=== PATIENT | female | born 1985 | race Two or more races ===

== ENCOUNTER 2023-08-09 04:22 | Emergency (ER) | payer OTHER ==
[~2023-08-09] VITALS: Ht 160 cm; Wt 70.0 kg
[2023-08-09 04:38] VITALS: TEMP 98.4
[2023-08-09] MEDS: KETOROLAC TROMETHAMINE 30 MG/ML VIAL IM ONE (06:37)
[2023-08-09] MEDS: ACETAMINOPHEN 500 MG TABLET PO ONE (06:37)
[2023-08-09 07:02] VITALS: BP 120/75; PULSE 85; RESP 16
[2023-08-09] MEDS ORDERED: IBUP-1492 PO (07:02)
[2023-08-09] MEDS ORDERED: ACET-3385 PO (07:02)
== END 2023-08-09 07:15 | disposition home or self-care (01) ==
LOC: EMS 04:23
DX: M79.641 Pain in right hand (principal); M19.90 Unspecified osteoarthritis, unspecified site
CPT/HCPCS: 99284; 73110; 73130; 96372; J1885